=== PATIENT | female | born 1970 | race Two or more races ===

== ENCOUNTER 2018-12-06 18:40 | Emergency (ER) | payer MEDICAID ==
[~2018-12-06] VITALS: Ht 154.9 cm; Wt 113.4 kg
[2018-12-06 18:49] VITALS: BP 167/96
[2018-12-06] MEDS ORDERED: HYDROcodone-ACET 10/325MG TAB PO ONE (20:30)
[2018-12-06] MEDS ORDERED: methylPREDNISolone SOD SUCC 125 MG/2 ML VL IM ONE (20:30)
[2018-12-06] MEDS ORDERED: cefTRIAXone SOD 1,000 MG VL IM ONE (20:30)
== END 2018-12-06 21:39 | disposition home or self-care (01) ==
LOC: ER 18:50
DX: K04.7 Periapical abscess without sinus (principal); J02.9 Acute pharyngitis, unspecified
CPT/HCPCS: 96372; 99283; J0696; J2930

== ENCOUNTER 2018-12-07 18:42 | Emergency (ER) | payer MEDICAID ==
[~2018-12-07] VITALS: Ht 154.9 cm; Wt 97.5 kg
[2018-12-07 18:56] VITALS: BP 131/78
[2018-12-07] MEDS ORDERED: methylPREDNISolone SOD SUCC 125 MG/2 ML VL IM ONE (20:45)
[2018-12-07] MEDS ORDERED: cefTRIAXone SOD 1,000 MG VL IM ONE (20:45)
== END 2018-12-07 21:21 | disposition home or self-care (01) ==
LOC: ER 18:42
DX: K04.7 Periapical abscess without sinus (principal); R51 Headache; Z88.0 Allergy status to penicillin
CPT/HCPCS: 96372; 99283; J0696; J2930

== ENCOUNTER 2019-10-15 18:38 | Emergency (ER) | payer MEDICAID ==
[~2019-10-15] VITALS: Ht 154.9 cm; Wt 106.1 kg
[2019-10-15 21:04] VITALS: BP 113/65
== END 2019-10-15 21:40 | disposition home or self-care (01) ==
LOC: MERGE 18:45 → ER 18:45
DX: S83.92XA Sprain of unspecified site of left knee, initial encounter (principal); S83.91XA Sprain of unspecified site of right knee, initial encounter; E66.9 Obesity, unspecified; Z88.0 Allergy status to penicillin; Z68.41 Body mass index [BMI] 40.0-44.9, adult; X50.1XXA Overexertion from prolonged static or awkward postures, initial encounter; Y93.A3 Activity, aerobic and step exercise; Y92.59 Other trade areas as the place of occurrence of the external cause; Y99.8 Other external cause status

== ENCOUNTER 2021-11-02 09:00 | Emergency (ER) | payer MEDICAID ==
[~2021-11-02] VITALS: Ht 157.5 cm; Wt 81.6 kg
[2021-11-02] MEDS ORDERED: ACETAMINOPHEN/CODEINE#3 (300/30mg) TAB PO ONE (12:45)
[2021-11-02] MEDS ORDERED: ONDANSETRON ODT 4 MG TAB PO ONE (12:45)
[2021-11-02 12:50] VITALS: BP 131/79
== END 2021-11-02 12:50 | disposition home or self-care (01) ==
LOC: ER 09:00
DX: S46.911A Strain of unspecified muscle, fascia and tendon at shoulder and upper arm level, right arm, initial encounter (principal); E11.9 Type 2 diabetes mellitus without complications; I10 Essential (primary) hypertension; W01.0XXA Fall on same level from slipping, tripping and stumbling without subsequent striking against object, initial encounter; Y93.89 Activity, other specified; Y92.89 Other specified places as the place of occurrence of the external cause; Y99.8 Other external cause status
CPT/HCPCS: 73030; 99283; Q0162

== ENCOUNTER 2023-02-17 10:00 | Emergency (ER) | payer MEDICAID, OTHER ==
[~2023-02-17] VITALS: Ht 152.4 cm; Wt 93.0 kg
[2023-02-17 10:25] VITALS: BP 160/106
[2023-02-17] MEDS ORDERED: cefTRIAXone SOD 1,000 MG VL IM ONE (11:15)
[2023-02-17] MEDS ORDERED: ACYC-166 PO (11:19)
[2023-02-17] MEDS ORDERED: IBUP800T27 PO (11:19)
== END 2023-02-17 11:33 | disposition home or self-care (01) ==
LOC: ER 10:00
DX: B02.9 Zoster without complications (principal); I88.9 Nonspecific lymphadenitis, unspecified; E11.9 Type 2 diabetes mellitus without complications; I10 Essential (primary) hypertension; Z88.0 Allergy status to penicillin
CPT/HCPCS: 96372; 99283; J0696

== ENCOUNTER 2023-06-05 16:02 | Emergency (ER) | payer OTHER ==
[~2023-06-05] VITALS: Ht 154.9 cm; Wt 89.8 kg
[~2023-06-05 16:02] MED LIST: ACYC1TAB3 PO; IBUP-1456 PO
[2023-06-05] MEDS ORDERED: TETANUS-DIPTH-ACEL PERTUSSIS 0.5ML SYR Tdap IM ONE (17:15)
[2023-06-05] MEDS ORDERED: IBUP-1455 PO (17:24)
[2023-06-05] MEDS ORDERED: ACET500T58 PO (17:24)
[2023-06-05] MEDS ORDERED: CEPH250C PO (17:24)
[2023-06-05] MEDS ORDERED: NEOMYCIN-BACITRACIN-POLYM UNITDOSE PKG TOP OINT TOP ONE (17:30)
[2023-06-05 17:32] VITALS: BP 164/92
== END 2023-06-05 17:36 | disposition home or self-care (01) ==
LOC: ER 16:02
DX: S61.001A Unspecified open wound of right thumb without damage to nail, initial encounter (principal); E11.9 Type 2 diabetes mellitus without complications; I10 Essential (primary) hypertension; E66.01 Morbid (severe) obesity due to excess calories; Z68.37 Body mass index [BMI] 37.0-37.9, adult; Z88.0 Allergy status to penicillin
CPT/HCPCS: 90471; 90715

== ENCOUNTER 2024-03-21 17:37 | Emergency (ER) | payer OTHER ==
[~2024-03-21] VITALS: Ht 165.1 cm; Wt 80.0 kg
[~2024-03-21 17:37] MED LIST changes: +ACET500T58 PO; +CEPH250C PO; +IBUP-1455 PO
[2024-03-21] MEDS: traMADol HCL 50 MG TAB PO ONE (21:19)
[2024-03-21 21:22] VITALS: BP 109/85; PULSE 97; RESP 16; TEMP 99.5; O2SAT 99
== END 2024-03-21 21:21 | disposition home or self-care (01) ==
LOC: ER 17:37
DX: M79.601 Pain in right arm (principal); R51.9 Headache, unspecified; I10 Essential (primary) hypertension; E11.9 Type 2 diabetes mellitus without complications; Z88.0 Allergy status to penicillin
CPT/HCPCS: 72125